=== PATIENT | female | born 1980 | race Caucasian/White ===

== ENCOUNTER 2018-12-28 18:02 | Emergency (ER) | payer BC ==
[2018-12-28 18:25] VITALS: BP 155/99
--- NOTE | 2018-12-28 18:47 | UC ---
[facility] HPI - HPI Summary HPI Summary: 38-year-old woman comes in with a chief complaint of dental pain. 3 days ago her left lower posterior molar started hurting. A lot worse today she called her dentist who recommended starting an antibiotic and then following up with her first available appointment on December 31, 2018. Pain is worse when chewing. Pain is decreased with ice. Patient's also use ibuprofen which has helped some. - History of Current Complaint Chief Complaint: UCDentalProblem Stated Complaint: DENTAL Time Seen by Provider: 12/28/18 18:41 Hx Last Menstrual Period: 12/27/18 Pain Intensity: 7 - Allergies/Home Medications Allergies/Adverse Reactions: Allergies Allergy/AdvReac Type Severity Reaction Status Date / Time No Known Allergies Allergy Verified 12/28/18 18:25 Home Medications: Home Medications Ibuprofen 800 mg PO ONCE 12/28/18 [History Confirmed 12/28/18] Latanoprost/Pf [Latanoprost 0.005% Eye Drop] 1 drop BOTH EYES DAILY 12/28/18 [ History Confirmed 12/28/18] PMH/Surg Hx/FS Hx/Imm Hx Previously Healthy: Yes - Surgical History Surgical History: None - Family History Known Family History: Positive: Non-Contributory - Social History Alcohol Use: Rare Substance Use Type: None Smoking Status (MU): Never Smoked Tobacco Review of Systems All Other Systems Reviewed And Are Negative: Yes Constitutional: Positive: Negative Skin: Positive: Negative Eyes: Positive: Negative ENT: Positive: Dental Pain Respiratory: Positive: Negative Cardiovascular: Positive: Negative Gastrointestinal: Positive: Negative Motor: Positive: Negative Neurovascular: Positive: Negative Musculoskeletal: Positive: Negative Neurological: Positive: Negative Psychological: Positive: Negative Is Patient Immunocompromised?: No Physical Exam Triage Information Reviewed: Yes Appearance: Well-Appearing, Well-Nourished, Pain Distress - MILD Vital Signs: Initial Vital Signs Temp 98 F 12/28/18 18:20 Pulse 88 12/28/18 18:20 Resp 16 12/28/18 18:20 BP 155/99 12/28/18 18:20 Pulse Ox 100 12/28/18 18:20 Vital Signs Reviewed: Yes Eye Exam: Normal Eyes: Positive: Conjunctiva Clear ENT: Positive: Pharynx normal, Uvula midline Dental: Positive: Other: - Left lower posterior molar has some decay. Patient points to this tooth as the source of the pain. Neck: Positive: Supple Respiratory: Positive: No respiratory distress Musculoskeletal Exam: Normal Musculoskeletal: Positive: Strength Intact, ROM Intact Neurological Exam: Normal Neurological: Positive: Alert, Muscle Tone Normal Psychological Exam: Normal Psychological: Positive: Age Appropriate Behavior Skin Exam: Normal Dental Complaint Course/Dx - Differential Dx/Diagnosis Provider Diagnosis: Toothache Discharge - Sign-Out/Discharge Documenting (check all that apply): Patient Departure All imaging exams completed and their final reports reviewed: No Studies - Discharge Plan Condition: Stable Disposition: HOME Prescriptions: Amoxicillin PO (*) [Amoxicillin 500 MG CAP*] 500 mg PO TID #30 cap Patient Education Materials: Toothache (ED) Referrals: Conchis Hancock MD [Primary Care Provider] - Additional Instructions: FOLLOW UP WITH YOUR DENTIST ON 12/31/18 SCHEDULED. GET REEVALUATED SOONER IF WORSE OR ANY QUESTIONS OR CONCERNS. - Billing Disposition and Condition Condition: STABLE Disposition: Home
== END 2018-12-28 18:56 | disposition home or self-care (01) ==
LOC: UCCORT 18:02
DX: K08.89 Other specified disorders of teeth and supporting structures (principal)
CPT/HCPCS: 99212; G0463